=== PATIENT | male | born 1985 | race Caucasian/White ===

== ENCOUNTER → 2023-11-22 | Day surgery (SDC) | payer BC ==
[~2023-11-22] MED LIST: CETIRIZINE HCL10 MG PO; FENTANYL CITRATE/PF 100MCG/2 ML INJ ONE; LIDOCAINE HCL 2% LOCAL INJ 5 ML SDV VIAL INJ ONE; METOCLOPRAMIDE HCL 10 MG/2ML VIAL ONE; MIDAZOLAM HCL 2 MG/2 ML VIAL ONE; OMEPRAZOLE40 MG PO; PROPOFOL IV EMULSION 10 MG/ML 20 ML VIAL ONE
[2023-11-22 09:46] VITALS: BP 133/71; PULSE 89; RESP 17; O2SAT 98
[2023-11-22] MEDS: LACTATED RINGER'S 1,000 ML ONE (10:06)
[2023-11-27 07:21] LABS: ENDOMYSIAL ANTIBODIES, IGA Negative (Negative)
[2023-11-27 07:40] LABS: IMMUNOGLOBULIN A 190 mg/dL (90-386); TISSUE TRANSGLUTAMINASE IGA AB <2 U/mL (0-3)
== END | disposition home or self-care (01) ==
LOC: OR 07:02
PROVIDERS: ATTEND Internal Medicine Gastroenterology
DX: K29.70 Gastritis, unspecified, without bleeding (principal); K29.80 Duodenitis without bleeding; K21.00 Gastro-esophageal reflux disease with esophagitis, without bleeding; K44.9 Diaphragmatic hernia without obstruction or gangrene; J30.2 Other seasonal allergic rhinitis; F17.200 Nicotine dependence, unspecified, uncomplicated
CPT/HCPCS: 43239; 82784; 83516; 86256; J2001; J2250; J2470; J2704; J2765; J3010; J7121